=== PATIENT | male | born 1950 | race Two or more races ===

== ENCOUNTER 2024-09-08 22:09 | Emergency (ER) | payer MEDICARE, MEDICAID, SELFPAY ==
[2024-09-08] VITALS (13 sets, daily range): BP systolic 80–244; BP diastolic 39–130; PULSE 88–150; RESP 16–24; O2SAT 96–100
--- NOTE | 2024-09-08 22:21 | PD.EDCPR ---
ED CPR RME/HPI General Chief Complaint: Cardiac Arrest/CPR Stated Complaint: CODE BLUE Time Seen by Provider: 09/08/24 22:21 Arrival date/time: 09/08/24 22:09 RME / HPI RME / HPI narrative: Dr. De Leon?s Main ED Evaluation: 74yo male with a history of CVA, ESRD on HD (T/Th/Sat), DM, HTN BIBA from [facility] presents to the ED with CPR actively in progress. Patient was seen by me immediately upon arrival at 2208. Patient was intubated at 2214. Per EMS, they found the patient down upon arrival on scene. EMS states facility staff were talking to the patient 5 minutes prior to their arrival on scene and called due to the patient vomiting blood. Patient was found to be asystole and CPR was immediately started by EMS. EMS administered 2 epi en route, with the last being 3 minutes prior to ED arrival. Blood sugar with EMS was 286. Full ROS is unobtainable due to the patient's medical condition. Related Data Home Medications ?Medication ?Instructions ?Recorded ?Confirmed allopurinol 100 mg tablet 100 mg PO QDAY #0 tabs 09/20/14 09/06/22 (Zyloprim) gabapentin 100 mg capsule 100 mg PO TID #0 caps 07/12/17 09/06/22 amlodipine 5 mg tablet 5 mg PO QDAY 03/21/19 09/06/22 nitroglycerin 0.4 mg sublingual 0.4 mg buccal PRN PRN Chest Pain 05/30/19 09/06/22 tablet omeprazole 40 mg capsule,delayed 40 mg PO QDAY 05/30/19 09/06/22 release calcium acetate(phosphat bind) 667 667 mg PO TIDWM 05/23/20 09/06/22 mg capsule cholecalciferol (vitamin D3) 25 1,000 unit PO QDAY 05/23/20 09/06/22 mcg (1,000 unit) tablet (Vitamin D3) hydralazine 50 mg tablet 50 mg PO TID 05/23/20 09/06/22 insulin detemir U-100 100 unit/mL 10 unit subcut UD 05/25/20 09/06/22 (3 mL) subcutaneous pen acetaminophen 325 mg tablet 650 mg PO Q6H PRN Pain 09/06/22 09/06/22 (Tylenol) albuterol sulfate 1.25 mg/3 mL 1.25 mg inhalation Q6H PRN sob 09/06/22 09/06/22 solution for nebulization bisacodyl 10 mg rectal suppository 10 mg MD Q72H constipation 09/06/22 09/06/22 (Dulcolax (bisacodyl)) donepezil 5 mg tablet 5 mg PO HS 09/06/22 09/06/22 latanoprost 0.005 % eye drops 1 drp ophthalmic (eye) HS 09/06/22 09/06/22 (Xalatan) loratadine 10 mg tablet 10 mg PO QDAY 09/06/22 09/06/22 magnesium hydroxide 400 mg/5 mL 30 ml PO Q72H PRN Constipation 09/06/22 09/06/22 oral suspension (Milk of Magnesia) simvastatin 10 mg tablet 10 mg PO QPM 09/06/22 09/06/22 sodium phosphates 19 gram-7 118 ml MD Q72H PRN Constipation 09/06/22 09/06/22 gram/118 mL enema (Fleet Enema) vitamin B complex-vitamin C-folic 1 tab PO QDAY 09/06/22 09/06/22 acid 0.8 mg tablet (Lesvia-Abdoulaye) Allergies Allergy/AdvReac Type Severity Reaction Status Date / Time No Known Allergies Allergy Verified 09/08/24 22:17 Review of Systems Review of Systems ROS Unobtainable: unobtainable due to medical condition Past Medical History Past Medical History NEUROLOGIC: Positive Neurological Disorders and Cerebrovascular Accident; Negative Seizures CARDIAC: Positive Cardiac Disorders, Hypercholesterolemia and Hypertension; Negative Congestive Heart Failure RESPIRATORY: Positive Tuberculosis; Negative Chronic Obstructive Pulmonary Disease (COPD) GASTROINTESTINAL: Positive Gastroesophageal Reflux Disease GENITOURINARY: Positive Renal Disease and Dialysis MUSCULOSKELETAL: Positive Arthritis, Rheumatoid Arthritis and Gout ENDOCRINE: Positive Endocrine Disorders and Diabetes Mellitus Type 2; Negative Diabetes Mellitus Type 1 HEMATOLOGIC: Negative Blood Disorders OTHER HISTORY: Positive Hospitalization, Shingles and Falls; Negative Blood Transfusions or Anesthesia Reactions Family History FAMILY HISTORY: Negative Family Neurologic Problems or Family Cardiac Disorders Surgical History SURGICAL: Positive Vascular Surgery, Coronary Stent and Tonsillectomy Social History SMOKING STATUS: Never smoker SUBSTANCE USE: does not use ED Exam Narrative Physical exam: GEN. APPEARANCE: Patient was in cardiac-respiratory arrest with CPR in progress. VITALS: Unobtainable. HEENT: Normocephalic, atraumatic. Has blood coming out of his mouth.. NECK: Supple, no JVD. CHEST: No deformity and no crepitus. ABDOMEN: Soft, flat. GENITALIA: Not examined. RECTAL EXAM: Not done. EXTREMITIES: Flaccid. No edema. SKIN: Cool and dry, no rashes noted. NEURO: GCS is 3. Course Course Course Narrative: 2214: Patient intubated. See procedure note. CXR is ordered for post intubation. 2217: ROSC obtained. Epinephrine x2, Calcium Chloride, and Bicarb given. See code sheet for medication details. 2244: Code rosendo called overhead. Responded to code. CPR started. Epi given just prior to code rosendo called overhead. 2246: ROSC obtained. Calcium chloride was given. See code sheet for medication details. 0130: After having a discussion with the patient's family, they request to keep the patient comfortable until another family member gets here so they can further discuss the patient's care.. 0139: Discussed POLST with the patient's family at bedside. POLST was signed, making the patient DNR with comfort measures. 0231: Patient . Quality Measures comfort care/end of life Orders Category Date Time Status CT Screening NOW Care 09/08/24 22:24 Active Oriental Medicine Practitioner STAT Care 09/08/24 22:22 Active Continuous Pulse Oximetry ONCE Care 09/08/24 22:22 Completed EKG (ED ONLY) *Do not use* NOW Care 09/08/24 22:22 Completed EKG (ED ONLY) *Do not use* NOW Care 09/08/24 23:23 Completed Intubation NOW Care 09/08/24 22:21 Completed Urinary Catheter STAT Care 09/08/24 22:[address] chest abdomen pelvis w Stat Exams 09/08/24 22:[address] head/brain wo con Stat Exams 09/08/24 22:24 Taken EKG (ED Only) Stat Exams 09/08/24 22:22 Draft EKG (ED Only) Stat Exams 09/08/24 23:23 Ordered XR chest 1V portable Stat Exams 09/08/24 22:22 Completed ABG [Arterial Blood Gas] Stat Lab 09/08/24 22:34 Completed B-Type Natriuretic Peptide Stat Lab 09/08/24 22:27 Completed CBC Stat Lab 09/08/24 22:27 Completed Comprehensive Metabolic Panel Stat Lab 09/08/24 22:27 Completed Lipase Stat Lab 09/08/24 22:27 Completed Magnesium Stat Lab 09/08/24 22:27 Completed Partial Thromboplastin Time Stat Lab 09/08/24 22:27 Completed Prothrombin Time with INR Stat Lab 09/08/24 22:27 Completed Sputum Culture and Gram Stain Stat Lab 09/08/24 22:22 Ordered Troponin I Stat Lab 09/08/24 22:27 Completed Calcium Chloride 10% Abboject Med 09/08/24 22:13 Discontinued 20 ml IV .STK-MED ONE EPINEPHrine Inj [Adrenalin Inj] Med 09/08/24 22:37 Discontinued 30 mg IV .STK-MED ONE EPINEPHrine in NS 4 MG IVPB [Adrenalin/NS 4 MG IVPB] Med 09/08/24 22:54 Discontinued 4 mg in 250 ml IV 0.05 mcg/kg/min EPINEPHrine in NS 4 MG IVPB [Adrenalin/NS 4 MG IVPB] Med 09/08/24 23:06 Active 4 mg in 250 ml IV 0.05 mcg/kg/min Piper/Tazo 3.375 gm [Zosyn] 50 ml Med 09/08/24 22:51 Discontinued IV X1 Sodium Chloride 0.9% 1000 ml [Ns] 1,000 ml Med 09/08/24 22:21 Discontinued IV 999 mls/hr Sodium Chloride Rt Linda 10% [NS Rt Linda 10%] Med 09/08/24 22:21 Discontinued 5 ml INH X1 ONE Sputum Induction PRN RT 09/08/24 22:30 Ordered Volume Ventilator Stat RT 09/08/24 Active Vital Signs Vital signs: Vital Signs Pulse Rate 142 H 09/08/24 22:19 Respiratory Rate 20 09/08/24 22:19 Blood Pressure 152/65 H 09/08/24 22:19 Oxygen Delivery Method Ambu-Bag 09/08/24 22:19 Procedures -ED Intubation Time out performed: No (performed emergently) Laryngoscope: fiber optic video scope Assist Device Used: fiber optic device ET Tube Size: 7.5 ET Tube Uncuffed: No Tube Secured Depth (cm): 24 Tube Secured Location: teeth Tube Placement Confirmation: visualized tube passing through cords, equal breath sounds bilaterally, no breath sounds over epigastrium and confirmation by capnometry Cardiac Arrest / CPR MDM Narrative MDM Narrative:: Scribe Attestation: 09/08/24 Cori Bowen am scribing for and in the presence of Dr. De Leon. Patient data External records reviewed:: [facility] previous records (Per chart review, patient was admitted here on 05/08/24 due to bleeding from his dialysis shunt.) Clinical information provided by:: EMS Social determinants that could affect healthcare access:: housing (SNF resident) Patient has the following chronic illnesses:: CVA, ESRD on HD, DM, HTN How is presenting disease/condition affected by chronic disease/condition?: uneffected by Evaluation data The following diagnostics were reviewed and interpreted by me:: lab results, radiology exam(s) and EKG tracing(s) Lab and/or radiology exams considered but not ordered:: none Interpretation Summary: ABG shows a low pH of 7.11, elevated pCO2 of 63, and normal bicarb; WBC count is elevated at 15.5, HnH is 10.9/35.4 (which is chronic), Creatinine is elevated at 5.0 (which is chronic), Calcium is 12.9, Troponin is elevated at 0.598 (which is new), CXR shows the ET tube and OG tube in good placement, according to my interpretation. EKG done at 2233, NSR, rate of 96, right axis deviation, RBBB, no ectopy, QRS: 135, QTc: 449, Q waves in V1 and V2, no STEMI, according to my interpretation. Repeat EKG done at 2328, sinus tachycardia, rate of 121, right axis deviation, frequent PACs, Q waves in V1 and V2, no STEMI, according to my interpretation. [facility]eler[facility] Preliminary Report Draft Patient: MARTHA PALMER Record#: [id number] Birthdate: 1950 Age/Sex: 74 / M Location: [facility] Attending Dr: Ordering Physician: Date of Service: Procedure(s): Accession Number(s): cc: ~ CT scan of the head without intravenous contrast (axial sections with sagittal and coronal reformats) September 09, 2024 0035 hours Clinical history: Status post cardiac arrest Compared with prior study dated September 06, 2022. Findings: There is acute subarachnoid hemorrhage in the interpeduncular cistern, left ambient cistern, bilateral sylvian fissures and bilateral parietotemporal sulcal spaces. There are intraventricular hemorrhages in both the lateral ventricles with hematocrit levels in the occipital horns. There is diffuse loss of cerebral yee white matter differentiation, likely due to cerebral oedema, new since the prior examination. There is no evidence midline shift. The calvarium is unremarkable. There is mild mucosal thickening seen in the right maxillary and ethmoid sinuses, new since the prior examination.There is persistent paucity in the right mastoid air cells and the remainder visualized paranasal sinuses are clear. Impression: Interval new subarachnoid hemorrhage in the interpeduncular cistern, left ambient cistern, bilateral sylvian fissures and bilateral parietotemporal sulcal spaces with intraventricular hemorrhage. Diffuse loss of cerebral yee white matter differentiation, likely due to cerebral edema, hypoxic ischemic encephalopathy cannot be excluded.. Discussion Details: Results verbally communicated to : Dr. De Leon at 02:16 AM 09/09/2024 Report Electronically Signed By: Trung Oh 09/09/2024 2:32:42 AM [facility]eler[facility] Preliminary Report Draft Patient: MARTHA PALMER. Record#: [id number] Birthdate: 1950 Age/Sex: 74 / M Location: [facility] Attending Dr: Ordering Physician: Date of Service: Procedure(s): Accession Number(s): cc: ~ CT scan of the chest, abdomen and pelvis with intravenous contrast (axial sections with sagittal and coronal reformats) September 09, 2024 at 0036 hours Clinical History: S/p cardiac arrest. Compared with the prior study dated December 22, 2018. Findings: There is extensive bilateral subsegmental consolidation with air bronchograms and surrounding ground glass opacities. There is no pleural effusion or pneumothorax. No evidence of mediastinal mass or lymphadenopathy. There is mild cardiomegaly. There is a small pericardial effusion. Coronary artery calcification is noted. There is a malpositioned endotracheal tube with its tip at the sydni. A right internal jugular venous catheter is seen with its tip in the right atrium. The liver, gallbladder, spleen and adrenals are unremarkable. The pancreas is atrophic. Again seen are atrophic kidneys. There is a small right renal cyst, new since the prior examination. The stomach is moderately distended. A nasogastric catheter is in satisfactory position with its tip in the stomach. No evidence of bowel dilatation. The appendix is within normal limits. Moderate amount of fecal material is present in the colon. The distal sigmoid colon and rectum are fecal filled and demonstrate mild wall thickening and adjacent fat stranding. There is mild polypoidal soft tissue thickening in the anterior wall of the mid sigmoid colon, measuring 1.2 x 2.2 x 2 cm (AP x TR x CC) (axial image 248/395). A small fat-containing umbilical hernia is present. The urinary bladder is not well distended with apparent wall thickening. The prostate is enlarged with its median lobe projecting within the bladder lumen. Possible small hematoma in the urinary bladder. There is no free fluid or air. The aorta and its branches demonstrate atheromatous calcification without evidence of aneurysm. There are multiple acute displaced bilateral 2nd to 7th rib fractures along the anterolateral aspect, likely due to resuscitation. Mild degenerative changes are identified in the spine. Multilevel Schmorl's nodes are present. Impression: Malpositioned endotracheal tube with its tip at the sydni. Recommend withdrawal by 4-5 cm. Appropriately positioned central venous and nasogastric catheters. Extensive bilateral subsegmental consolidation with air bronchograms and surrounding ground glass opacities. Findings suggestive of aspiration pneumonia versus infectious etiology. Recommend clinical correlation and follow-up. Mild cardiomegaly with a small pericardial effusion. Multiple acute displaced bilateral 2nd to 7th rib fractures as described. No pneumothorax. Mild polypoidal soft tissue thickening in the anterior wall of the mid sigmoid colon as described, new since the prior examination. Recommend further evaluation. Rectosigmoid fecal impaction. Other findings as described above. Discussion Details: Results verbally communicated to : Dr. De Leon at 02:15 AM 09/09/2024 Report Electronically Signed By: Trung Oh 09/09/2024 2:33:09 AM Medications / Prescriptions Medications or Prescriptions considered but not ordered:: none Medication administrations:: Medication Administration History Epinephrine/Sodium Chloride (Adrenalin/Ns 4 Mg Ivpb) 4 mg in 250 mls @ 14.063 mls/hr IV .[id number] PRN; Protocol PRN Reason: per protocol Stop: 10/08/24 23:05 Last Titration: 09/09/24 02:19 Dose: Infused Documented By: Titration: 09/09/24 01:45 Dose: 1 mcg/kg/min, 281.25 mls/hr Documented By: Admin: 09/09/24 01:00 Dose: 1 mcg/kg/min, 281.25 mls/hr Documented By: Titration: 09/09/24 00:55 Dose: Infused Documented By: Titration: 09/09/24 00:50 Dose: 1 mcg/kg/min, 281.25 mls/hr Documented By: Titration: 09/09/24 00:45 Dose: 0.98 mcg/kg/min, 275.625 mls/hr Documented By: Titration: 09/09/24 00:40 Dose: 0.98 mcg/kg/min, 275.625 mls/hr Documented By: Titration: 09/09/24 00:35 Dose: 0.98 mcg/kg/min, 275.625 mls/hr Documented By: Titration: 09/09/24 00:30 Dose: 0.98 mcg/kg/min, 275.625 mls/hr Documented By: Titration: 09/09/24 00:25 Dose: 0.98 mcg/kg/min, 275.625 mls/hr Documented By: Titration: 09/09/24 00:20 Dose: 0.98 mcg/kg/min, 275.625 mls/hr Documented By: Titration: 09/09/24 00:15 Dose: 0.96 mcg/kg/min, 270 mls/hr Documented By: Titration: 09/09/24 00:10 Dose: 0.96 mcg/kg/min, 270 mls/hr Documented By: Titration: 09/09/24 00:05 Dose: 0.96 mcg/kg/min, 270 mls/hr Documented By: Titration: 09/09/24 00:00 Dose: 0.96 mcg/kg/min, 270 mls/hr Documented By: Admin: 09/08/24 23:58 Dose: 0.94 mcg/kg/min, 264.375 mls/hr Documented By: Titration: 09/08/24 23:55 Dose: Infused Documented By: Titration: 09/08/24 23:50 Dose: 0.92 mcg/kg/min, 258.75 mls/hr Documented By: Titration: 09/08/24 23:45 Dose: 0.94 mcg/kg/min, 264.375 mls/hr Documented By: Titration: 09/08/24 23:40 Dose: 0.96 mcg/kg/min, 270 mls/hr Documented By: Titration: 09/08/24 23:35 Dose: 0.96 mcg/kg/min, 270 mls/hr Documented By: Titration: 09/08/24 23:30 Dose: 0.96 mcg/kg/min, 270 mls/hr Documented By: Titration: 09/08/24 23:25 Dose: 0.96 mcg/kg/min, 270 mls/hr Documented By: Titration: 09/08/24 23:20 Dose: 0.98 mcg/kg/min, 275.625 mls/hr Documented By: Titration: 09/08/24 23:15 Dose: 0.98 mcg/kg/min, 275.625 mls/hr Documented By: Titration: 09/08/24 23:10 Dose: 1 mcg/kg/min, 281.25 mls/hr Documented By: Titration: 09/08/24 23:05 Dose: 1 mcg/kg/min, 281.25 mls/hr Documented By: Titration: 09/08/24 23:00 Dose: 1 mcg/kg/min, 281.25 mls/hr Documented By: Titration: 09/08/24 22:55 Dose: 0.07 mcg/kg/min, 19.688 mls/hr Documented By: Admin: 09/08/24 22:49 Dose: 0.05 mcg/kg/min, 14.063 mls/hr Documented By: KG Discontinued Medications Calcium Chloride (Calcium Chloride 10% Inj 10 Ml Syrg) Confirm Administered Dose 20 ml IV .STK-MED ONE Stop: 09/08/24 22:14 Last Admin: 09/08/24 22:22 Dose: Not Given Documented By: KG Non-Admin Reason: Code Blue Comments: REFER TO CODE SHEET Epinephrine HCl (Epinephrine Inj 1 Mg/Ml Vial 30ml) Confirm Administered Dose 30 mg IV .STK-MED ONE Stop: 09/08/24 22:38 Last Admin: 09/08/24 23:08 Dose: Not Given Documented By: KG Non-Admin Reason: Code Blue Sodium Chloride (Ns) 1,000 mls @ 999 mls/hr IV .Q1H1M ONE Stop: 09/08/24 23:21 Last Infusion: 09/08/24 23:26 Dose: Infused Documented By: Admin: 09/08/24 22:25 Dose: 999 mls/hr Documented By: KG Piperacillin/Tazobactam/Dextrose (Zosyn) 50 mls @ 100 mls/hr IV X1 ONE Stop: 09/08/24 23:20 Last Infusion: 09/08/24 23:52 Dose: Infused Documented By: Admin: 09/08/24 23:22 Dose: 100 mls/hr Documented By: KG Epinephrine/Sodium Chloride (Adrenalin/Ns 4 Mg Ivpb) 4 mg in 250 mls @ 0 mls/hr IV .Q24H PRN; Protocol PRN Reason: per protocol Stop: 10/08/24 22:53 Sodium Chloride (Sodium Chloride Rt 10% 15 Ml Nebu) 5 ml INH X1 ONE Stop: 09/08/24 22:22 see above Consultations Consultation(s) initiated? (list below): No Diagnosis Cardiac arrest differential diagnosis: acute massive pulmonary embolism, acute respiratory failure, acute myocardial infarction and cardiac arrest Most likely diagnosis given after review of the tests above:: cardiac arrest, subarachnoid hemorrhage Admission Indicated Admission indicated?: not indicated Admission Request Was there a request for admission?: No Disposition Plan Disposition Plan: other (specify) (Patient .) Critical Care Time Critical Care Time Critical Care Time: Yes Total Critical Care Time (min.): 80 Attestation: The high probability of sudden, clinically significant deterioration in the patient?s condition required the highest level of my preparedness to intervene urgently. The services I provided to this patient were to treat and/or prevent clinically significant deterioration. Services included the following: chart data review, reviewing nursing notes and/or old charts, documentation time, procurement consultant collaboration regarding findings and treatment options, medication orders and management, direct patient care, vital sign assessments and ordering, interpreting and reviewing diagnostic studies and lab tests. Aggregate critical care time includes only time during which I was engaged in work directly related to the patient?s care, as described above, whether at bedside or elsewhere in the Emergency Department. It did not include time spent performing other reported procedures or the services of residents, students, nurses or physician assistants. Discharge Plan Plan Patient Disposition: Prescriptions/Referrals Referrals: Leydi Suh MD [Primary Care Provider] - In 1 week Problem List Clinical Impression: Cardiac arrest, Subarachnoid hemorrhage Patient/Caregiver Discharge Instructions Print Language: Nigerien
--- NOTE | 2024-09-08 22:22 | EKG_ITS ---
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: : 1950 Requested By: Sergio Cardoza Order Number: [id number] Reading MD: Sergio Cardoza Measurements Intervals [place] Rate: 96 P: 21 IL: 106 QRS: 128 QRSD: 135 T: 93 QT: 396 QTc: 501 Interpretive Statements SINUS RHYTHM WITH SHORT [place] INTERVAL MARKED RIGHT AXIS DEVIATION [QRS AXIS > 100] RIGHT BUNDLE BRANCH BLOCK [120+ ms QRS DURATION, UPRIGHT V1, 40+ ms S IN I/aVL/V4/V5/V6] SEPTAL MYOCARDIAL INFARCTION , OF INDETERMINATE AGE [40+ ms Q WAVE IN V1/V2] Compared to ECG 05/08/2024 13:35:05 Short [place] interval now present Right-axis deviation now present Myocardial infarct finding still present /store/S0/[id number]/ecg/[id number].pdf
--- NOTE | 2024-09-08 22:22 | XR_ITS ---
Examination: AP chest single view Technique: AP portable supine chest single view Exam date and time: September 08, 2024 10:45 PM Comparison June 08, 2024 Indications: Cardiopulmonary arrest today post intubation Findings: Mild enlargement cardiac contour Prominent vascular congestion Perihilar edema. Endotracheal tube tip 3.6 cm above sydni Right internal jugular dialysis catheter tips right atrium Advance the orogastric tube 5 cm Impression: Mild to moderate CHF Advance the orogastric tube 5 cm
--- NOTE | 2024-09-08 22:24 | XR_ITS ---
Examination: CT chest with intravenous contrast CT abdomen with intravenous contrast CT pelvis with intravenous contrast 2-D coronal and sagittal reconstructions Time of exam: September 09, 2024 0036 hrs. Indications: Cardiopulmonary arrest, currently today CTDI: vol (mGy) : 17.61 DLP: (mGycm): 451 Technique: Multiple axial images of the chest, abdomen and pelvis with intravenous contrast, 3.0 mm slice thickness. Images obtained post intravenous injection Isovue 370 60 cc. 2-D sagittal and coronal reconstructions. Low dose protocols were performed. One or more of the following dose reduction techniques were used; automated exposure control, adjustment of the mA and/or KV according to patient size, use of iterative reconstruction technique. Findings: Endotracheal tube tip projects 5 mm above sydni Right internal jugular central line tip SVC No thoracic aortic aneurysm dilatation Pulmonary artery segments are not enlarged No pulmonary artery emboli on this non-CTA study Extensive bilateral lung opacity especially at the lung bases consider aspiration pneumonia Small pericardial effusion Possible fracture of mid body the sternum No thoracic vertebral body compression fracture Multiple bilateral rib fractures including second, third, fourth, fifth, sixth, seventh ribs No liver splenic or renal laceration No gallstones Atrophic kidneys with renal cortical thinning and scarring Air distended stomach although orogastric tube is present in stomach Aorta is intact, no free blood in the abdomen Normal appendix Abundant stool in the colon Soft tissue mass in the sigmoid colon axial image 247 measuring 20 x 12 mm, diagnosis would include early malignant neoplasm of the colon Hips bones of the pelvis intact Impression: Retract the endotracheal tube 3 cm Extensive bilateral pneumonia, consider aspiration pneumonia Suspicious for nondisplaced fracture body the sternum Multiple bilateral rib fractures No pneumothoraces Soft tissue mass involving the sigmoid colon, 20 x 12 mm, consider early malignant neoplasm of the colon
--- NOTE | 2024-09-08 22:24 | XR_ITS ---
Examination: CT brain head without contrast. 2-D sagittal coronal reconstructions Date and time of exam:September 09, 2024 at 12:35 AM Indications: Status post cardiac arrest comminuted today 3 hours ago CTDI: vol (mGy):54 DLP: (mGycm):1087 while Technique: Multiple CT axial sections of the brain have been obtained, 5 mm slice thickness. Contrast has not been administered. 2-D sagittal, coronal reconstructions have been obtained Low dose protocols were performed. One or more of the following dose reduction techniques were used; automated exposure control, adjustment of the mA and/or KV according to patient size, use of iterative reconstruction technique. Findings: Subarachnoid hemorrhage including the pontine and perimesencephalic cistern as well as sylvian fissure is Intraventricular hemorrhage in the posterior lateral ventricles Severe diffuse generalized cerebral edema No midline shift Cranial vault intact Impression: Interval subarachnoid hemorrhage as above Intraventricular hemorrhage Severe diffuse generalized cerebral edema Differential would include rupture of cerebral aneurysm including off the basilar artery or posterior left cerebral artery
[2024-09-08] MEDS: SODIUM CHLORIDE 0.9% 1000 ML 1,000 ML 999 ML IV (22:25)
--- NOTE | 2024-09-08 22:36 | PC.NURSE ---
XRAY at the bedside
[2024-09-08 22:37] LABS: Basophils % (Auto) 0 % (0-2.5); Eosinophils % (Auto) 0 % (0-10); Hematocrit 35.4 % (41.0-53.0); Hemoglobin 10.9 g/dL (13.5-16.0); Immature Granulocytes % (Auto) 1 % (0-0); Immature Granulocytes Auto 0.15 Thou/mm3 (0.00-0.00); Lymphocytes # (Auto) 6.3 Thou/mm3 (1.0-4.8); Lymphocytes % (Auto) 41 % (10-50); Mean Corpuscular HGB Conc 30.8 g/dl (31.0-37.0); Mean Corpuscular Hemoglobin 29.9 pg (25.0-35.0); Mean Corpuscular Volume 97 fL (80-100); Monocytes # (Auto) 0.5 Thou/mm3 (0.0-0.8); Monocytes % (Auto) 3 % (0-12); Neutrophils # (Auto) 8.5 Thou/mm3 (1.8-7.7); Neutrophils % (Auto) 55 % (37-80); Nucleated Red Blood Cell # 0.04 Thou/mm3 (0.00-0.00); Nucleated Red Blood Cell % 0 /100 WBC (0); Platelet Count 176 Thou/mm3 (140-440); RDW Standard Deviation 52.3 fL (35.1-43.9); Red Blood Count 3.64 Miln/mm3 (4.50-5.90); White Blood Count 15.5 Thou/mm3 (3.8-10.6)
[2024-09-08 22:40] LABS: Base Excess -10 (-3-3); HCO3 20 mEq/L (20-26); Inspired Oxygen, FIO2 21 %; O2 Saturation 100 % (91-98); PCO2 63 mmHg (32.0-48.0); PO2 183 mmHg (83-108)
--- NOTE | 2024-09-08 22:44 | PC.NURSE ---
checked BP and pt was 50/28; informed Dr. De Leon, verbal order received to give push of 1mg epi and to begin epi drip. Epi pushed, and pt began to bharti down to 50s - pulse checked and none was felt so CPR initiated and pierre robbins called.
[2024-09-08 22:47] LABS: Allen Test Performed/OK; Puncture Site Right Radial
[2024-09-08 22:49] LABS: pH, Arterial 7.11 (7.35-7.45)
[2024-09-08] MEDS: EPINEPHrine in NS 4 MG IVPB 4 MG/250 ML BAG 14.063 MG IV (22:49)
[2024-09-08 22:50] LABS: INR 1.3 (0.9-1.3); Partial Thromboplastin Time 47.6 Seconds (22.0-36.0); Prothrombin Time 14.2 Seconds (9.0-12.2)
--- NOTE | 2024-09-08 23:00 | PC.NURSE ---
Pt's BP dropping again, verbal order received at this time to max epi drip to 1mcg/kg/min.
--- NOTE | 2024-09-08 23:01 | PC.LAC ---
pt's blood pressure is dropping at this time; informed Dr. De Leon, verbal order received to raise epi drip to max of 1mcg/kg/min at this time.
--- NOTE | 2024-09-08 23:04 | PC.NURSE ---
Pt's son is at the bedside at this time.
[2024-09-08 23:05] LABS: Alanine Aminotransferase 150 U/L (10-49); Albumin, Serum 3.3 gm/dL (3.4-4.8); Albumin/Globulin Ratio 1.2 (1.2-2.2); Alkaline Phosphatase 99 U/L (46-116); Anion Gap 18 (7-16); Aspartate Amino Transferase 168 U/L (0-34); BUN/Creatinine Ratio 8 Ratio (12-20); Bilirubin,Total < 0.2 mg/dL (0.3-1.2); Blood Urea Nitrogen 38 mg/dL (9-23); Calcium 12.9 mg/dL (8.3-10.6); Carbon Dioxide 24.3 mMol/L (20.0-31.0); Chloride 100 mMol/L (98-107); Globulin 2.8 gm/dL (2.3-3.5); Glucose 183 mg/dL (74-106); Lipase 21 U/L (12-53); Magnesium 2.2 mg/dL (1.6-2.6); Osmolality,Calculated 297 (275-295); Potassium 4.1 mMol/L (3.4-5.1); Sodium 142 mMol/L (136-145); Total Protein 6.1 gm/dL (5.7-8.2); eGFR 11 See Note
[2024-09-08 23:06] LABS: Calcium (Corrected) 13.5 mg/dL (8.5-10.1)
[2024-09-08 23:08] LABS: Troponin I 0.598 ng/mL (0.0-0.045)
[2024-09-08] MEDS: PIPER/TAZO 3.375 GM 50 ML IV (23:22)
[2024-09-08] MEDS: EPINEPHrine in NS 4 MG IVPB 4 MG/250 ML BAG 264.375 MG IV (23:58)
[2024-09-09] VITALS (11 sets, daily range): BP systolic 67–165; BP diastolic 41–77; PULSE 96–126; RESP 20–24; TEMP 37.1; O2SAT 92–100
[2024-09-09 00:08] LABS: B-Type Natriuretic Peptide 1234 pg/mL (0-100)
--- NOTE | 2024-09-09 00:48 | PC.NURSE ---
Pt taken to CT scan accompanied by myself, RT and HOURLY MANAGER. Pt tolerated well.
[2024-09-09] MEDS: EPINEPHrine in NS 4 MG IVPB 4 MG/250 ML BAG 281.25 MG IV (01:00)
--- NOTE | 2024-09-09 01:43 | PC.NURSE ---
Dr. De Leon at the bedside speaking with family regarding pt's diagnosis and wishes. Family has decided on comfort focused treatment but are waiting for 2 more family members before epi drip is stopped.
--- NOTE | 2024-09-09 02:12 | PC.NURSE ---
All family at the bedside at this time with Dr. De Leon.
--- NOTE | 2024-09-09 02:33 | PRELIM_ITS ---
CT scan of the head without intravenous contrast (axial sections with sagittal and coronal reformats) September 09, 2024 0035 hours Clinical history: Status post cardiac arrest Compared with prior study dated September 06, 2022. Findings: There is acute subarachnoid hemorrhage in the interpeduncular cistern, left ambient cistern, bilateral sylvian fissures and bilateral parietotemporal sulcal spaces. There are intraventricular hemorrhages in both the lateral ventricles with hematocrit levels in the occipital horns. There is diffuse loss of cerebral yee white matter differentiation, likely due to cerebral oedema, new since the prior examination. There is no evidence midline shift. The calvarium is unremarkable. There is mild mucosal thickening seen in the right maxillary and ethmoid sinuses, new since the prior examination.There is persistent paucity in the right mastoid air cells and the remainder visualized paranasal sinuses are clear. Impression: Interval new subarachnoid hemorrhage in the interpeduncular cistern, left ambient cistern, bilateral sylvian fissures and bilateral parietotemporal sulcal spaces with intraventricular hemorrhage. Diffuse loss of cerebral yee white matter differentiation, likely due to cerebral edema, hypoxic ischemic encephalopathy cannot be excluded.. Discussion Details: Results verbally communicated to : Dr. De Leon at 02:16 AM 09/09/2024 Report Electronically Signed By: Trung Oh 09/09/2024 2:32:42 AM [EST]
--- NOTE | 2024-09-09 02:34 | PRELIM_ITS ---
CT scan of the chest, abdomen and pelvis with intravenous contrast (axial sections with sagittal and coronal reformats) September 09, 2024 at 0036 hours Clinical History: S/p cardiac arrest. Compared with the prior study dated December 22, 2018. Findings: There is extensive bilateral subsegmental consolidation with air bronchograms and surrounding ground glass opacities. There is no pleural effusion or pneumothorax. No evidence of mediastinal mass or lymphadenopathy. There is mild cardiomegaly. There is a small pericardial effusion. Coronary artery calc ification is noted. There is a malpositioned endotracheal tube with its tip at the sydni. A right internal jugular venous catheter is seen with its tip in the right atrium. The liver, gallbladder, spleen and adrenals are unremarkable. The pancreas is atrophic. Again seen are atrophic kidneys. There is a small right renal cyst, new since the prior examination. The stomach is moderately distended. A nasogastric catheter is in satisfactory position with its tip in the stomach. No evidence of bowel dilatation. The appendix is within normal limits. Moderate amount of fecal material is present in the colon. The distal sigmoid colon and rectum are fecal filled and demonstrate mild wall thickening and adjacent fat stranding. There is mild polypoidal soft tissue thickening in the anterior wall of the mid sigmoid colon, measuring 1.2 x 2.2 x 2 cm (AP x TR x CC) (axial image [id number]). A small fat- containing umbilical hernia is present. The urinary bladder is not well distended with apparent wall thickening. The prostate is enlarged with its median lobe projecting within the bladder lumen. Possible small hematoma in the urinary bladder. There is no free fluid or air. The aorta and its branches demonstrate atheromatous calcification without evidence of aneurysm. There are multiple acute displaced bilateral 2nd to 7th rib fractures along the anterolateral aspect, likely due to resuscitation. Mild degenerative changes are identified in the spine. Multilevel Schmorl's nodes are present. Impression: Malpositioned endotracheal tube with its tip at the sydni. Recommend withdrawal by 4-5 cm. Appropriately positioned central venous and nasogastric catheters. Extensive bilateral subsegmental consolidation with air bronchograms and surrounding ground glass opacities. Findings suggestive of aspiration pneumonia versus infectious etiology. Recommend clinical correlation and follow-up. Mild cardiomegaly with a small pericardial effusion. Multiple acute displaced bilateral 2nd to 7th rib fractures as described. No pneumothorax. Mild polypoidal soft tissue thickening in the anterior wall of the mid sigmoid colon as described, new since the prior examination. Recommend further evaluation. Rectosigmoid fecal impaction. Other findings as described above. Discussion Details: Results verbally communicated to : Dr. De Leon at 02:15 AM 09/09/2024 Report Electronically Signed By: Trung Oh 09/09/2024 2:33:09 AM [EST]
--- NOTE | 2024-09-09 02:34 | PC.RT ---
Pt removed from ventilator for demise per DR. Moises YEE @0230. LOUISA Franks and filtering machine tender helperLOUISA frias.
== END 2024-09-09 05:06 | disposition expired ==
PROVIDERS: Emergency Provider Emergency Medicine; PCP Hospitalist
DX: I46.9 Cardiac arrest, cause unspecified (principal); I60.9 Nontraumatic subarachnoid hemorrhage, unspecified; I12.0 Hypertensive chronic kidney disease with stage 5 chronic kidney disease or end stage renal disease; N18.6 End stage renal disease; Z99.2 Dependence on renal dialysis
CPT/HCPCS: 31500; 36415; 36600; 70450; 71045; 71260; 74177; 80053; 82803; 83690; 83735; 83880; 84484; 85025; 85610; 85730; 87205; 92950; 93005; 94002; 94003; 96365; 96368; 99291; 99292; A4649; J0171; J2543; J7030; Q9967